=== PATIENT | female | born 1950 | race Caucasian/White ===

== ENCOUNTER 2017-06-02 09:30 | Day surgery (SDC) ==
[2017-06-02] MEDS ORDERED: LIDOCAINE 1% 20 ML MDV ID STA (10:04)
[2017-06-02] MEDS ORDERED: DIPRIVAN 20 ML VIAL IVP ONE (11:25)
[2017-06-02] MEDS ORDERED: VERSED ONE (11:25)
[2017-06-02 15:08] VITALS: BP 146/56; TEMP 98.2
--- NOTE | 2017-06-03 10:26 | OP ---
PROCEDURE: COLONOSCOPY TO THE CECUM. ENDOSCOPIST: Rohit CORRALES M.D. INDICATION: HISTORY OF POLYPS. LAST COLONOSCOPY 5 YEARS AGO. INSTRUMENT: [id number]. MEDICATION: PER ANESTHESIA. PROCEDURE: The patient was positioned for colonoscopy. The digital rectal exam was negative. The colonoscope was inserted through the anus and advanced to the cecum. The cecum was identified using the ileocecal valve and the appendiceal orifice as landmarks. The scope was slowly withdrawn through an adequately prepped colon. The [place] Bowel Prep Score was 2 + 2 + 3 = 7. Scattered diverticula noted in the left colon. The retroflex exam was notable for hemorrhoids. The patient tolerated the procedure without immediate complication. Withdrawal time 7 minutes and 32 seconds. PLAN: 1. Repeat colonoscopy in 5 years. CC: DR. MOLLY GERARD
== END 2017-06-02 12:30 | disposition home or self-care (01) ==
LOC: SURG 09:30
PROVIDERS: ATTEND Internal Medicine Gastroenterology
DX: Z09 Encounter for follow-up examination after completed treatment for conditions other than malignant neoplasm (principal); Z86.010 Personal history of colon polyps; K57.30 Diverticulosis of large intestine without perforation or abscess without bleeding; K64.9 Unspecified hemorrhoids